=== PATIENT | male | born 1955 | race Caucasian/White ===

== ENCOUNTER 2018-06-24 07:33 | Day surgery (SDC) | payer OTHER ==
[2018-06-24] MEDS ORDERED: SOD CHLORIDE 0.9% 1,000 ML IV (10:00)
[2018-06-24] MEDS ORDERED: SUCCINYLCHOLINE CHLORIDE 100 MG/5 ML SYG IV (10:56)
[2018-06-24] MEDS ORDERED: PROPOFOL 20 ML (10:56)
[2018-06-24] MEDS ORDERED: ROCURONIUM 50 MG INJ (10:56)
[2018-06-24] MEDS ORDERED: CEFAZOLIN 1 GM INJ (10:57)
[2018-06-24] MEDS ORDERED: FENTAnyl 50 MCG/ML VIAL ×2 (10:57→12:08)
[2018-06-24] MEDS ORDERED: MIDAZOLAM 1 MG/ML 2 ML INJ (10:57)
[2018-06-24] MEDS: LIDOCAINE 1%/EPI (1:100,000) (MDV) 20 ML (11:44)
[2018-06-24] MEDS: EPINEPHrine 1 MG INJ (11:49)
[2018-06-24] MEDS: GELATIN SIZE 100 SPONGE (11:49)
[2018-06-24] MEDS ORDERED: GLYCOPYRROLATE 0.4 MG INJ (12:26)
[2018-06-24] MEDS ORDERED: NEOSTIGMINE 3 MG/3 ML SYRINGE (12:26)
[2018-06-24] MEDS: NEOMYC/POLYMYX/HC 10 ML OTIC SUSP (12:28)
[2018-06-24] MEDS: HYDROmorphONE 1 MG/5 ML IV SYRINGE IV (13:56)
[2018-06-24] MEDS: ONDANSETRON 4 MG INJ IV (13:56)
[2018-06-24] MEDS: OXYCODONE/ACETAMINOPHEN (5/325) TAB PO (14:05)
== END 2018-06-24 15:23 | disposition home or self-care (01) ==
LOC: SDS 07:33
DX: H66.92 Otitis media, unspecified, left ear (principal); E11.9 Type 2 diabetes mellitus without complications; Z79.84 Long term (current) use of oral hypoglycemic drugs
CPT/HCPCS: 69436; 82962